=== PATIENT | male | born 1985 | race Caucasian/White ===

== ENCOUNTER 2020-11-04 18:50 | Emergency (ER) | payer MEDICAID ==
[~2020-11-04] VITALS: Ht 177.8 cm; Wt 90.3 kg
[2020-11-04 19:05] VITALS: BP 110/78; Ht 177.8 cm; Wt 90.3 kg
== END 2020-11-04 19:28 | disposition home or self-care (01) ==
LOC: ED 18:50
DX: F41.9 Anxiety disorder, unspecified (principal)